=== PATIENT | male | born 1965 | race African-American/Black ===

== ENCOUNTER 2018-03-04 11:27 | Observation (INO) ==
[2018-03-04 11:33] VITALS: TEMP 98.3
[2018-03-04 12:09] LABS: Hematocrit 45.2 % (39.0-51.0); Hemoglobin 14.7 gm/dL (13.0-17.0); Mean Corpuscular HGB Conc 32.5 % (32.0-36.0); Mean Corpuscular Hemoglobin 26.9 pg (27.0-34.0); Mean Corpuscular Volume 82.9 fL (80.0-100.0); Mean Platelet Volume 8.2 fL (7.0-11.0); Platelet Count 201 th/mm3 (150-450); Red Blood Count 5.45 mil/mm3 (4.50-5.90); Red Cell Distribution Width 14.9 % (11.6-17.2); White Blood Count 4.4 th/mm3 (4.0-11.0)
[2018-03-04 12:23] VITALS: BP 149/91; PULSE 68; RESP 18; O2SAT 100
[2018-03-04 12:26] LABS: Alanine Aminotransferase 36 U/L (12-78); Albumin 4.2 g/dL (3.4-5.0); Anion Gap 8 meq/L (5-15); Aspartate Aminotransferase 47 U/L (15-37); Blood Urea Nitrogen 13 mg/dL (7-18); Carbon Dioxide 29.9 meq/L (21.0-32.0); Chloride 103 meq/L (98-107); Glomerular Filtration Rate 61 mL/min (>89); Glucose,Random 101 mg/dL (74-106); Potassium 4.4 meq/L (3.5-5.1); Sodium 141 meq/L (136-145)
--- NOTE | 2018-03-04 12:27 | ED ---
HPI General Chief Complaint: Chest Pain Stated Complaint: chest pain Time Seen by Provider: 03/04/18 12:22 Source: patient Mode of arrival: ambulatory Limitations: no limitations History of Present Illness HPI narrative: 52-year-old male patient with history of no significant past medical issues, presents to the ER today because he states that for the past month he has been having substernal chest discomfort, just he states that it just feels tight, and he feels like he has to constantly clear his throat. He denies shortness of breath, coughing, fevers, or other symptoms. He is worried because it is not going away. He does not know of any exacerbating or alleviating factors. Symptoms appear to be waxing and waning, today's at 8 out of 10. Related Data Home Medications Medication Instructions Recorded Confirmed No Known Home Medications 03/04/18 03/04/18 Allergies Allergy/AdvReac Type Severity Reaction Status Date / Time No Known Allergies Allergy Unverified 03/04/18 12:18 Review of Systems ROS: all other systems reviewed are negative FOR[facility]LY [facility] Medical History Medical History Patient denies medical problems (Acute) Social History Social History Substance History: No History of Abuse Second Hand Smoke Exposure: No Smoking Status: Never smoker How Often Do You Have a Drink Containing Alcohol: Monthly or less Recent Travel in [facility] within the Last 8 Weeks: No Recent Out of Country Travel within the Last 8 Weeks: No Immunization History Tetanus Immunization: Unsure Hx Influenza Vaccine This Season: No Exam Narrative Exam Narrative: GENERAL: Well-developed middle-age male patient currently in mild distress. Awake and oriented 3. SKIN: Focused skin assessment warm/dry. HEAD: Atraumatic. Normocephalic. EYES: Pupils equal and round. No scleral icterus. No injection or drainage. ENT: No nasal bleeding or discharge. Mucous membranes pink and moist. NECK: Trachea midline. No JVD. CARDIOVASCULAR: Regular rate and rhythm. No murmur appreciated. RESPIRATORY: No accessory muscle use. Clear to auscultation. Breath sounds equal bilaterally. GASTROINTESTINAL: Abdomen soft, non-tender, nondistended. Hepatic and splenic margins not palpable. MUSCULOSKELETAL: No obvious deformities. No clubbing. No cyanosis. No edema. NEUROLOGICAL: Awake and alert. No obvious cranial nerve deficits. Motor grossly within normal limits. Normal speech. PSYCHIATRIC: Appropriate mood and affect; insight and judgment normal. Course Initial Documented Vital Signs Temperature 98.3 F 03/04/18 11:32 Pulse Rate 70 03/04/18 11:32 Respiratory Rate 16 03/04/18 11:32 Blood Pressure 148/84 H 03/04/18 11:32 Pulse Oximetry 99 03/04/18 11:32 Last Documented Vital Signs Temperature 98.3 F 03/04/18 11:32 Pulse Rate 68 03/04/18 12:23 Respiratory Rate 18 03/04/18 12:23 Blood Pressure 149/91 H 03/04/18 12:23 Pulse Oximetry 100 03/04/18 12:26 Medical Decision Making MDM Narrative Medical decision making narrative: Lab work, chest x-ray and cardiac enzymes were fairly unremarkable. D-dimer is negative. At this point, he described this pain as a tightness in his chest, possibly related to clearing his throat. Chest pain is fairly atypical but at this point, he does not have a regular doctor and think it would be a good idea to have him checked out to make sure is not cardiac. Planning to admit to chest pain center for further evaluation. Medical Screen Exam Complete: Yes Emergency Medical Condition: Yes Differential Diagnosis Differential Diagnosis: GERD versus ACS versus gastritis versus dysrhythmias versus anxiety attack versus pneumonia Lab Data Lab results reviewed: Yes I reviewed the patient's lab results. Result diagrams: 03/04/18 11:54 03/04/18 11:54 Lab Results 03/04/18 03/04/18 03/04/18 Range/Units 11:54 11:54 12:45 WBC 4.4 (4.0-11.0) th/mm3 RBC 5.45 (4.50-5.90) mil/mm3 Hgb 14.7 (13.0-17.0) gm/dL Hct 45.2 (39.0-51.0) % MCV 82.9 (80.0-100.0) fL MCH 26.9 L (27.0-34.0) pg MCHC 32.5 (32.0-36.0) % RDW 14.9 (11.6-17.2) % Plt Count 201 (150-450) th/mm3 MPV 8.2 (7.0-11.0) fL Prelim Diff (Auto) Manual diff required WBC Differential Manual diff final Seg Neuts % (Manual) 53 (16-70) % Lymphocytes % (Manual) 38 (9-44) % Monocytes % (Manual) 7 (0-8) % Eosinophils % (Manual) 1 (0-4) % Basophils % (Manual) 1 (0-2) % Abs Neuts (Manual) 2.3 (1.8-7.7) th/mm3 Differential Comment . Platelet Estimate Normal (Normal) Platelet Morphology Normal (Normal) D-Dimer Quant (PE/DVT) 0.47 (0.00-0.50) mg/L FEU Sodium 141 (136-145) meq/L Potassium 4.4 (3.5-5.1) meq/L Chloride 103 (98-107) meq/L Carbon Dioxide 29.9 (21.0-32.0) meq/L Anion Gap 8 (5-15) meq/L BUN 13 (7-18) mg/dL Creatinine 1.24 (0.60-1.30) mg/dL Estimated GFR 61 L (>89) mL/min Random Glucose 101 (74-106) mg/dL Calcium 9.0 (8.5-10.1) mg/dL Total Bilirubin 0.6 (0.2-1.0) mg/dL AST 47 H (15-37) U/L ALT 36 (12-78) U/L Alkaline Phosphatase 71 (45-117) U/L Troponin I Less than 0.02 L (0.02-0.05) ng/mL Total Protein 8.3 H (6.4-8.2) g/dL Albumin 4.2 (3.4-5.0) g/dL Imaging Data Attestation: I personally reviewed and interpreted this imaging study as follows : Radiologist's impression: Chest X-Ray 03/04/18 11:44 CONCLUSION: No evidence of acute cardiopulmonary process. ECG Data Attestation: I personally reviewed and interpreted this ECG as follows: Interpretation: EKG shows a normal sinus rhythm at a rate of 69 bpm. No signs of acute ST elevations or depressions. Discharge Plan Discharge Disposition Patient Disposition: 30 Still Patient Discharge Condition Condition: Stable Discharge Details Anticipated Discharge Date: 03/04/18 Diagnosis: Atypical chest pain Physicians Team ED Provider: Maribell Gupta Primary Care Provider: Primary Care Conchis Moulton Rxs /Orders / Referrals /Forms Prescriptions: No Action No Known Home Medications RF: 0 Discharge Instructions Patient Printed Instructions: Chest Pain (ED) Discharge Interventions Interventions: Vital Signs Last Done: 03/04/18 11:32 Status ED Status: With Doctor
[2018-03-04 12:29] LABS: Alkaline Phosphatase 71 U/L (45-117); Total Protein 8.3 g/dL (6.4-8.2)
[2018-03-04 13:09] LABS: Eosinophils 1 % (0-4); Lymphocytes 38 % (9-44); Monocytes 7 % (0-8)
[2018-03-04 13:10] LABS: Platelet Estimate Normal (Normal); Platelet Morphology Normal (Normal)
--- NOTE | 2018-03-04 13:18 | XR ---
EXAM DATE: 03/04/2018 1:08 PM EDT AGE/SEX: 52 years / Male INDICATIONS: . Pain and tightness in chest for 1 month, feels like he has to clear his throat every few minutes CLINICAL DATA: This is the patient's initial encounter. Patient reports that signs and symptoms have been present for 1 month and indicates a pain score of 0/10. MEDICAL/SURGICAL HISTORY: None. None. COMPARISON: No prior exams available for comparison. FINDINGS: PA and lateral views of the chest demonstrate the lungs to be symmetrically aerated without evidence of mass, infiltrate or effusion. The cardiomediastinal contours are unremarkable. Osseous structures are intact. CONCLUSION: No evidence of acute cardiopulmonary process. Electronically signed by: Lane Aden MD 03/04/2018 1:17 PM EDT
[2018-03-04] MEDS ORDERED: Loratadine 10 MG Tablet PO ONE (14:07)
--- NOTE | 2018-03-04 14:11 | P.PNCA ---
Subjective Interval history: The patient was seen and examined in concert with nurse practitioner. Am in agreement with history as documented. Chest x-ray EKG and laboratory data were all evaluated. Plan course of evaluation and treatment were also discussed thoroughly. Patient's current presentation is almost certainly an allergenic bronchitis of long-standing. He will be evaluated and ruled out with the EKG and enzymes per chest pain center protocol and then an exercise stress test. If this is unremarkable he will be discharged with recommendation for OTC therapy and outpatient follow-up for further evaluation of long-standing chronic bronchitis and allergy. Physical Exam Vital signs: Vital Signs 03/04/18 11:32 03/04/18 12:23 03/04/18 12:26 Temperature 98.3 F Pulse Rate 70 68 Respiratory Rate 16 18 Blood Pressure 148/84 H 149/91 H Pulse Oximetry 99 99 100 Intake & Output 03/03/18 03/04/18 03/04/18 18:59 06:59 18:59 Weight 79.379 kg Narrative: Well-nourished well-developed black gentleman in no acute distress at time of exam Skin warm and dry Head normocephalic atraumatic Eyes PERRLA EOMI sclera heavily injected and reported as itchy Nose unremarkable but patient reports it to be itchy as well Mouth mucous membranes moist and well papillated no lesions Neck supple no JVD masses nodes or bruits Chest clear to auscultation with no rales wheezes or rhonchi Cardiovascular reveals regular sinus rhythm no gallop rub or murmur Abdomen soft nontender no guarding or rebound no hepatosplenomegaly Extremities no clubbing cyanosis or edema pulses are intact EKG is essentially normal Chest x-ray is also essentially normal although there are fine interstitial markings
--- NOTE | 2018-03-04 14:58 | P.HPCA ---
History of Present Illness Primary Care Physician: No Primary Care Physician Chief Complaint: Chest tightness History of Present Illness: 52 year old male without significant past medical history presents to ER for further evaluation of chest tightness and constantly having to clear his throat. Onset "over one month." Intermittent chest tightness. Denies chest pain. Duration 20 minutes. No radiation. No associated symptoms. Precipitating factors "breathing in martha air." Relieving factors resting. No fever, chills, recent illness, or injury. No sick contacts. No animals in his home. Occasionally coughs white phlegm. Reports constantly required to clear throat with associated nasal and eye itchiness and frequent sneezing. Tried Claritin a few days ago which improved his symptoms somewhat. Does not take any medications regularly. No known CAD, hypertension, or hyperlipidemia. Moved from [place] to [place] 5 months ago. Past cardiac testing None Family history Noncontributory for early onset cardiovascular disease Social history Borderline diabetic. No known coronary artery disease, hypertension, hyperlipidemia. Former smoker, quitting over 25 years ago. Rare alcohol use. Denies any drug use. Recently moved from [place], currently unemployed. Lives with his girlfriend. Endorses active lifestyle. - Diagnosis (1) Atypical chest pain (2) Allergic rhinitis Review of Systems All other systems reviewed negative except as stated in HPI Eyes: Reports itchy eyes Ears, Nose, Mouth, and Throat: Reports post nasal drip, Denies headache(s), Denies hoarseness, Denies neck pain, Denies sinus pressure, Denies throat swelling PMFSH - History History Provided By: Patient - Medical / Surgical Hx Neg / Unobtainable Surgical History: No Previous Surgery - Medical History Medical History: Medical History (Last Updated 03/04/18 @ 14:49 by KYLIE Boykin) Borderline diabetes Patient denies medical problems - Family History Family History: Family History (Last Updated 03/04/18 @ 14:50 by KYLIE Boykin) Father Cirrhosis, alcoholic - Social History I have reviewed the patient's Social History: Yes - Tobacco History Second Hand Smoke Exposure: No Smoking Status: Never smoker - Alcohol History How Often Do You Have a Drink Containing Alcohol: Monthly or less - Substance Use History Substance History: No History of Abuse - Travel History History of Recent Travel: No Recent Travel in the [facility] Within the Last 8 Weeks: No Recent Travel Out of the Country Within the Last 8 Weeks: No - Immunization History Tetanus Immunization: Unsure Hx Influenza Vaccine This Season: No Medications and Allergies Active Medications: Active Medications Sodium Chloride (Ns Flush) 2 ml IV.FLUSH BID LAM Sodium Chloride (Ns Flush) 2 ml IV.FLUSH PRN PRN PRN Reason: FLUSH AFTER USING IV ACCESS Allergies Allergy/AdvReac Type Severity Reaction Status Date / Time No Known Allergies Allergy Unverified 03/04/18 12:18 Home Medications Medication Instructions Recorded Confirmed Type No Known Home Medications 03/04/18 03/04/18 History Exam Vital signs: Vital Signs 03/04/18 11:32 03/04/18 12:23 03/04/18 12:26 Temperature 98.3 F Pulse Rate 70 68 Respiratory Rate 16 18 Blood Pressure 148/84 H 149/91 H Pulse Oximetry 99 99 100 Intake & Output 03/03/18 03/04/18 03/04/18 18:59 06:59 18:59 Weight 79.379 kg Narrative: GENERAL: Alert WN, WD, NAD, pleasant, -[place] male HEAD: NC, AT EYES: Sclera injected, conjunctiva heavily injection, pupils equal and round ENT: Mucous membranes pink and moist NECK: Supple, no masses, trachea midline CV: RRR, without murmur, rub, gallop, no JVD, S1-S2 no S3-S4. No carotid bruits. RESP: Clear lungs throughout bilateral, no crackles, wheeze, rhonchi, symmetrical chest rise, nonlabored, able to speak in full sentences ABD: Soft, NT, ND, no masses, positive bowel tones EXT: Pulses +2x4, no dependent edema MS: Normal tone x4 extremities, nontender, no obvious deformities, full range of motion NEURO: CN II through CN XII grossly intact, motor strength 5/5 PSYCH: A+O x3, pleasant affect, appropriate speech, appropriate mood, insight and judgment SKIN: Normal turgor, normal texture, no lesions, no rashes, brisk cap refill, even hair distribution, right thumbnail, right third digit thumbnail and left fifth digit nail thick, discolored brown Results 03/04/18 11:54 03/04/18 11:54 Cardiac Enzymes 03/04/18 Range/Units 11:54 AST 47 H (15-37) U/L Troponin I Less than 0.02 L (0.02-0.05) ng/mL CBC 03/04/18 Range/Units 11:54 WBC 4.4 (4.0-11.0) th/mm3 RBC 5.45 (4.50-5.90) mil/mm3 Hgb 14.7 (13.0-17.0) gm/dL Hct 45.2 (39.0-51.0) % Plt Count 201 (150-450) th/mm3 Comprehensive Metabolic Panel 03/04/18 Range/Units 11:54 Sodium 141 (136-145) meq/L Potassium 4.4 (3.5-5.1) meq/L Chloride 103 (98-107) meq/L Carbon Dioxide 29.9 (21.0-32.0) meq/L BUN 13 (7-18) mg/dL Creatinine 1.24 (0.60-1.30) mg/dL Calcium 9.0 (8.5-10.1) mg/dL AST 47 H (15-37) U/L ALT 36 (12-78) U/L Alkaline Phosphatase 71 (45-117) U/L Total Protein 8.3 H (6.4-8.2) g/dL Albumin 4.2 (3.4-5.0) g/dL Intake and Output 03/03/18 03/04/18 03/04/18 22:59 06:59 14:59 Other: Weight 79.379 kg Patient Weight 03/05/18 06:59 Weight 79.379 kg EKG interpretations - EKG EKG results cardiology: WNL, sinus rhythm, normal axis, normal QRS Caprini VTE Risk Assessment Caprini VTE Risk Assessment: No/Low Risk (score <= 1) Caprini Risk Assessment Model: Point Value = 1 Point Value = 2 Point Value = 3 Point Value = 5 Age 41-60 Minor surgery BMI > 25 kg/m2 Swollen legs Varicose veins or History of unexplained or recurrent spontaneous Oral contraceptives or hormone replacement Sepsis (< 1 month) Serious lung disease, including pneumonia (< 1 month) Abnormal pulmonary function Acute myocardial infarction Congestive heart failure (< 1 month) History of inflammatory bowel disease Medical patient at bed rest Age 61-74 Arthroscopic surgery Major open surgery (> 45 min) Laparoscopic surgery (> 45 min) Malignancy Confined to bed (> 72 hours) Immobilizing plaster cast Central venous access Age >= 75 History of VTE Family history of VTE Factor V Leiden Prothrombin [id number] Lupus anticoagulant Anticardiolipin antibodies Elevated serum homocysteine Heparin-induced thrombocytopenia Other congenital or acquired thrombophilia Stroke (< 1 month) Elective arthroplasty Hip, pelvis, or leg fracture Acute spinal cord injury (< 1 month) Prophylaxis Regimen: Total Risk Factor Score Risk Level Prophylaxis Regimen 0-1 Low Early ambulation 2 Moderate Order ONE of the following: *Sequential Compression Device (SCD) *Heparin 5000 units SQ BID 3-4 Higher Order ONE of the following medications: *Heparin 5000 units SQ TID *Enoxaparin/Lovenox 40 mg SQ daily (WT < 150 kg, CrCl > 30 mL/min) *Enoxaparin/Lovenox 30 mg SQ daily (WT < 150 kg, CrCl > 10-29 mL/min) *Enoxaparin/Lovenox 30 mg SQ BID (WT < 150 kg, CrCl > 30 mL/min) AND/OR *Sequential Compression Device (SCD) 5 or more Highest Order ONE of the following medications: *Heparin 5000 units SQ TID (Preferred with Epidurals) *Enoxaparin/Lovenox 40 mg SQ daily (WT < 150 kg, CrCl > 30 mL/min) *Enoxaparin/Lovenox 30 mg SQ daily (WT < 150 kg, CrCl > 10-29 mL/min) *Enoxaparin/Lovenox 30 mg SQ BID (WT < 150 kg, CrCl > 30 mL/min) AND *Sequential Compression Device (SCD) Assessment and Plan - Assessment (1) Atypical chest pain Code(s): R07.89 - Other chest pain Status: Acute Plan: Admitted to chest pain center. Seen and evaluated by Dr. Ramesh Cotton. Rule out ACS with 2 sets of EKGs and cardiac enzymes. After second set of EKGs and cardiac enzymes plan to proceed with exercise cardiac testing this afternoon. If unremarkable, plan is to discharge home with follow-up with primary care provider. Information on [facility] will be provided upon discharge. (2) Allergic rhinitis Code(s): J30.9 - Allergic rhinitis, unspecified Status: Chronic Plan: Education on allergic rhinitis given in length. Encouraged daily use of Claritin and Flonase nasal spray. Encouraged follow up with a primary care provider as further evaluation likely required as symptoms are quite severe. Verbalized understanding. (2) Allergic rhinitis Qualifiers: Allergic rhinitis seasonality: unspecified
--- NOTE | 2018-03-05 10:16 | TR ---
Date Performed: 03/04/2018 Time Performed: 15:54:41 DOCTOR: Theron Stevens DRUG LIST: CLINICAL HISTORY: CHEST PAIN REASON FOR TEST: Chest pain REASON FOR ENDING: OBSERVATION: CONCLUSION: Shashi protocol completed. Stopped sec to leg fatigue and exceeding target heart rate . Maximum MS=232 Target HR Jmhobxrh=983.0% Maximum HI=896/90 Total Exercise Time=7:13. No reprod ches t discomfort. No ectopy. Artifact at peak while running. Upsloping st segments. Good exercise toleran ce. Normal bp response. Recovery quick and unremarkable. COMMENTS: Conclusion: Normal treadmill exercise. No evidence of ischemia.
--- NOTE | 2018-03-05 10:32 | ECG ---
Date Performed: 03/04/2018 Time Performed: 14:32:09 PTAGE: 52 years EKG: Sinus rhythm LEFT AXIS DEVIATION VOLTAGE CRITERIA FOR LVH ABNORMAL ECG PREVIOUS TRACING : 03/04/2018 11.44 Since previous tracing, no significant change noted DOCTOR: Theron Stevens Interpretating Date/Time 03/05/2018 10:31:27
--- NOTE | 2018-03-05 22:23 | ECG ---
Date Performed: 03/04/2018 Time Performed: 11:44:49 PTAGE: 52 years EKG: Sinus rhythm BORDERLINE LEFT AXIS DEVIATION VOLTAGE CRITERIA FOR LVH NONSPECIFIC T-WAVE ABNORMALITY ABNORMAL ECG NO PREVIOUS TRACING DOCTOR: John Araujo Interpretating Date/Time 03/05/2018 22:14:56
== END 2018-03-04 17:20 | disposition home or self-care (01) ==
LOC: NEPC 11:27 → NEDA 11:27 → NEPFCDU 14:26
PROVIDERS: ADMIT Internal Medicine Interventional Cardiology; ATTEND Internal Medicine Interventional Cardiology